=== PATIENT | female | born 1985 | race Caucasian/White ===

== ENCOUNTER → 2017-12-16 | Outpatient (CLI) | payer OTHER ==
--- NOTE | 2017-12-16 12:39 | RAD ---
Right knee, 2 views, 12/16/2017: History: Right knee pain No fracture or dislocation is identified. No significant arthritic change is seen. No joint effusion is evident. IMPRESSION: No significant right knee abnormality is detected.
== END | disposition home or self-care (01) ==
LOC: PMG 11:53
PROVIDERS: ATTEND Physician Assistant Medical
DX: M25.561 Pain in right knee (principal)
CPT/HCPCS: 73560

== ENCOUNTER 2017-12-23 15:53 | Emergency (ER) | payer OTHER ==
[~2017-12-23] VITALS: Ht 170.2 cm; Wt 99.8 kg
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
[2017-12-23 18:20] VITALS: BP 127/72
== END 2017-12-23 18:20 | disposition home or self-care (01) ==
LOC: ER 15:53
DX: S09.90XA Unspecified injury of head, initial encounter (principal); S13.4XXA Sprain of ligaments of cervical spine, initial encounter; S00.83XA Contusion of other part of head, initial encounter; Z88.5 Allergy status to narcotic agent; V43.52XA Car driver injured in collision with other type car in traffic accident, initial encounter; Y93.89 Activity, other specified; Y99.8 Other external cause status; Y92.488 Other paved roadways as the place of occurrence of the external cause
CPT/HCPCS: 70450; 70486; 72125; 72128; 99284-25

== ENCOUNTER → 2018-06-22 | Outpatient (CLI) | payer OTHER | END | disposition home or self-care (01) | LOC: SURG 10:16 | PROVIDERS: ATTEND Anesthesiology | DX: M47.22 Other spondylosis with radiculopathy, cervical region (principal); R51 Headache; E05.80 Other thyrotoxicosis without thyrotoxic crisis or storm; E66.9 Obesity, unspecified; Z79.899 Other long term (current) drug therapy; Z83.3 Family history of diabetes mellitus | CPT/HCPCS: 99214 ==

== ENCOUNTER → 2018-06-22 | Outpatient (CLI) | payer OTHER ==
--- NOTE | 2018-06-22 14:21 | RAD ---
CT HEAD WO CONTRAST History: Headache for one week following cervical spine steroid injection Comparison: None. Technique: Noncontrast CT imaging was performed of the head. Exposure: One or more of the following individualized dose reduction techniques were utilized for this examination: 1. Automated exposure control 2. Adjustment of the mA and/or kV according to patient size 3. Use of iterative reconstruction technique. Findings: There is mild motion. No convincing acute extra-axial or parenchymal hemorrhage is identified. There is no significant intra-axial mass effect, midline shift, or extra-axial fluid collection. The pittman-white differentiation of the major vascular territories is preserved. The ventricles, sulci, and cisterns are within normal limits in size and configuration. The mastoid air cells and the visualized paranasal sinuses are aerated. No acute calvarial abnormality is identified. Impression: 1. No convincing acute intracranial abnormality is identified. Electronically signed by: Edgard Perry MD (06/22/2018 2:17 PM) [id number]
== END | disposition home or self-care (01) ==
LOC: CT 12:14
PROVIDERS: ATTEND Anesthesiology
DX: R51 Headache (principal)
CPT/HCPCS: 70450